=== PATIENT | female | born 1975 | race Caucasian/White ===

== ENCOUNTER 2017-05-02 00:06 | Emergency (ER) | payer OTHER ==
[2017-05-02 00:22] VITALS: TEMP 97.6; BMI 28.3
--- NOTE | 2017-05-02 03:13 | PDOC ---
History of Present Illness - General Chief Complaint: Laceration Stated Complaint: LACTERATION TO HEAD Time Seen by Provider: 05/02/17 02:16 - History of Present Illness Initial Comments: 05/02/17 02:55 CHIEF COMPLAINT: closed head injury HISTORY OF PRESENT ILLNESS: 41 yo F with hx of NIDDM presents to ED s/p head injury. Patient reports that she was washing dishes around 3 pm today and walked into the corner of an open cabinet door. Patient's son is at bedside and states that when he arrived home at around 7 pm patient was already sleeping, but otherwise she is acting normally. Patient denies any fall, LOC, or vomiting but reports that she did have nausea earlier. She reports that she has severe headache with movement of her left eye as well as with any movement of her head. No recent travel or sick contacts. PAST MEDICAL HISTORY: Denies past medical history FAMILY HISTORY: Denies SOCIAL HISTORY: Denies tobacco, alcohol, illicit drug use. SURGICAL HISTORY: Denies ALLERGIES: No known drug allergies REVIEW OF SYSTEMS General/Constitutional: Denies fever or chills. Denies weakness, weight change. HEENT: Laceration to scalp. Denies change in vision. Denies ear pain or discharge. Denies sore throat. Cardiovascular: Denies chest pain or shortness of breath. Respiratory: Denies cough, wheezing, or hemoptysis. Gastrointestinal: Denies nausea, vomiting, diarrhea or constipation. Denies rectal bleeding. Genitourinary: Denies dysuria, frequency, or change in urination. Musculoskeletal: Denies joint or muscle swelling or pain. Denies neck or back pain. Skin and breasts: Denies rash or easy bruising. Neurologic: Headache. Denies loss of consciousness, or loss of sensation. PHYSICAL EXAM General Appearance: Well-appearing, appropriately dressed. No apparent distress. HEENT: EOMI, PERRLA. No conjunctival pallor. No photophobia, scleral icterus. Neck: Supple. Trachea midline. No tenderness, rigidity, carotid bruit, stridor , lymphadenopathy, or thyromegaly. Respiratory/Chest: Lungs CTAB. Cardiovascular: RRR. S1, S2. Vascular Pulses: Dorsalis-Pedis (R): 2+, Dorsalis-Pedis (L): 2+ Gastrointestinal/Abdominal: Normal bowel sounds. Abdomen soft, non-distended. No tenderness or rebound tenderness. No organomegaly, pulsatile mass, guarding , hernia, hepatomegaly, splenomegaly. Musculoskeletal/Extremities: Normal inspection. FROM of all extremities, normal capillary refill. Pelvis Stable. No CVA tenderness. No tenderness to extremities, pedal edema, swelling, erythema or deformity. Integumentary: Superficial, laceration approximately 0.5 cm in length to left parietal scalp. Mild Appropriate color, dry, warm. No cyanosis, erythema, jaundice or rash Neurologic: heavy truck mechanic II-XII intact. Fully oriented, alert. Appropriate mood/affect. Motor strength 5/5. No appreciable EOM palsy, facial droop or sensory deficit. A&Ox3, follow commands, respond appropriately CN2-12: conjugate gaze, pupil round, equal and reactive to light. Visual field full to confrontation. EOMI without nystagmus, pursuit is smooth without saccade. Facial sensation and muscle activation intact bilaterally. Hearing intact bilaterally. Palate elevate symmetrically. Shoulder shrug and neck turn full strength. Tongue protrude midline. Motor: UE and LE strength 5/5 throughout bilaterally. Muscle tone and bulk normal. Sensory: pin prick & temp : BUE & BLE intact and equal bilaterally Vibration & propioception: intact bilaterally at 1st MCP and MTP joints. no sensory level noted on trunk Cerebellar: Rapid-alternating movement with regular rhythm without bradykinesia. Onlrve-[id number] and tpvl-ow-zhdh intact bilaterally without dysmetria or overshoot. Gait narrow based. No shuffling. Full hip flexion and knee flexion. Negative Romberg No involuntary movement noted. No pronator drift. No clonus. 05/02/17 04:58 Past History - Past Medical History Allergies/Adverse Reactions: Allergies Allergy/AdvReac Type Severity Reaction Status Date / Time No Known Allergies Allergy Verified 05/02/17 03:30 Home Medications: Ambulatory Orders Amoxicillin - [Amoxicillin 500mg Capsule -] 500 mg PO TID #90 capsule 05/30/14 Ondansetron [Zofran -] 4 mg PO TID #10 tablet 05/30/14 Oxycodone HCl/Acetaminophen [Percocet 5-325 mg Tablet -] 1 - 2 tab PO Q6H #14 tablet 05/30/14 Ibuprofen [Motrin -] 600 mg PO TID #21 tablet 05/02/17 Diabetes: Yes (GESTATIONAL) - Reproductive History Spontaneous : 0 - Immunization History Td Vaccination: Yes TDAP Vaccination: Yes Immunization Up to Date: Yes - Suicide/Smoking/Psychosocial Hx Smoking Status: No Smoking History: Never smoked Have you smoked in the past 12 months: No Number of Cigarettes Smoked Daily: 0 Information on smoking cessation initiated: No Hx Alcohol Use: No Drug/Substance Use Hx: No *Physical Exam - Vital Signs Last Vital Signs Temp Pulse Resp BP Pulse Ox 97.6 F 92 H 20 136/89 98 05/02/17 00:20 05/02/17 00:20 05/02/17 00:20 05/02/17 00:20 05/02/17 00:20 ED Treatment Course - RADIOLOGY Radiology Studies Ordered: Category Date Time Status HEAD CT WITHOUT CONTRAST [CT] Stat CT Scan 05/02/17 02:42 Ordered Medical Decision Making - Medical Decision Making 05/02/17 03:13 41 yo F with hx of NIDDM presents to ED s/p head injury. Laceration very superficial; no bleeding at this time, no indication for lac repair. Patient's son states patient is acting at baseline. -Head CT r/o bleed Head CT negative. Patient unsure when her last Tdap was. -Tdap given Advised pt to f/u with PCP and neuro this week . Advised patient of signs and symptoms for return to ER; patient verbalized understanding and agrees to plan. *DC/Admit/Observation/Transfer Diagnosis at time of Disposition: Closed head injury Qualifiers: Encounter type: initial encounter Qualified Code(s): S09.90XA - Unspecified injury of head, initial encounter; S09.90XA - Unspecified injury of head, initial encounter - Discharge Dispostion Disposition: HOME Condition at time of disposition: Stable Admit: No - Prescriptions Prescriptions: Ibuprofen [Motrin -] 600 mg PO TID #21 tablet - Referrals Referrals: Sonia Sagastume MD [Staff Physician] - Wes Cummings MD [Staff Physician] - - Patient Instructions Printed Discharge Instructions: DI for Closed Head Injury Additional Instructions: As discussed, please follow up with Dr. Garcia this week. Please follow up with neurology if your symptoms persist past 2-3 days. If you develop any change in vision, worsening headache, weakness to one side, slurred speech, persistent vomiting, change in behavior, or any new or worsening symptoms, please return to the ER immediately.
[2017-05-02] MEDS ORDERED: DIPHTH,PERTUSS(ACELL),TET 0.5 ML DISP.SYRIN IM ONE (04:52)
[2017-05-02 05:03] VITALS: BP 128/67; PULSE 86
== END 2017-05-02 05:11 | disposition home or self-care (01) ==
LOC: JER 00:06
PROC: 3E0234Z Introduction of Serum, Toxoid and Vaccine into Muscle, Percutaneous Approach (ICD-10-PCS; principal; 2017-05-02)
DX: S09.8XXA Other specified injuries of head, initial encounter (principal); W22.8XXA Striking against or struck by other objects, initial encounter; Y93.89 Activity, other specified; Y92.038 Other place in apartment as the place of occurrence of the external cause; Y99.8 Other external cause status
CPT/HCPCS: 70450-TC; 84703; 90471; 90715; 99283-25

== ENCOUNTER 2017-12-04 05:36 | Emergency (ER) | payer SELFPAY ==
[2017-12-04 06:19] VITALS: BP 140/86; PULSE 92; TEMP 98.5; BMI 27.2
[2017-12-04] MEDS ORDERED: ACETAMINOPHEN 325 MG TABLET (FP) PO ONE (07:33)
--- NOTE | 2017-12-04 07:33 | PDOC ---
History of Present Illness - General Chief Complaint: Cold Symptoms Stated Complaint: FEVER,PAIN - History of Present Illness Initial Comments: Patient is a 42 year old female, with a significant past medical history of NIDDM2, who presents to the emergency department complaining of 3 days of Sinus pain, productive cough and fever. Pt states she began developing a L sided JOSÉ 3 days around with generalized malaise with no associated neuro symptoms, primarily localized at the maxilla, L forehead and superior alveolar margin. Last night, pt developed a productive cough with yellow sputum and fever ( unknown value), took tylenol with resolution. Pt with prior hx of sinus infections, most recently 3 years ago. Denies recent travel or sick contacts. Decreased PO intake overnight. Pt endorsing anterior chest pain and neck pain (MSK) with coughing. patient denies shortness of breath, dizziness. Denies chills, nausea, vomiting, diarrhea and constipation. Denies dysuria, frequency, urgency and hematuria, myalgias. Allergies: None Past surgical history: Social History: Denies toxic habits PMD: Unknown 12/04/17 07:27 Past History - Past Medical History Allergies/Adverse Reactions: Allergies Allergy/AdvReac Type Severity Reaction Status Date / Time No Known Allergies Allergy Verified 12/04/17 06:16 Home Medications: Ambulatory Orders Acetaminophen [Tylenol] 650 mg PO QID 12/04/17 Amoxicillin/Potassium Clav [Augmentin 875-125 Tablet] 1 each PO BID #14 tablet 12/04/17 COPD: No Diabetes: Yes (GESTATIONAL) Other medical history: High sugars -- no meds - Reproductive History Spontaneous : 0 - Immunization History Td Vaccination: Yes TDAP Vaccination: Yes Immunization Up to Date: Yes - Suicide/Smoking/Psychosocial Hx Smoking Status: No Smoking History: Never smoked Have you smoked in the past 12 months: No Number of Cigarettes Smoked Daily: 0 Hx Alcohol Use: No Drug/Substance Use Hx: No Substance Use Type: None Review of Systems - Review of Systems Comments:: GENERAL/CONSTITUTIONAL: +fevers, no chills. No weakness. +malaise HEAD, EYES, EARS, NOSE AND THROAT: +nasal congestion, discharge on L. Maxillary sinus pain. No change in vision. No ear pain or discharge. No sore throat. CARDIOVASCULAR: No chest pain or shortness of breath RESPIRATORY: No cough, wheezing, or hemoptysis. GASTROINTESTINAL: No nausea, vomiting, diarrhea or constipation. GENITOURINARY: No dysuria, frequency, or change in urination. MUSCULOSKELETAL: +chest wall pain with coughing. No joint or muscle swelling or pain. No neck or back pain. SKIN: No rash NEUROLOGIC: + L sided JOSÉ. no vertigo, loss of consciousness, or change in strength/sensation. ENDOCRINE: No increased thirst. No abnormal weight change HEMATOLOGIC/LYMPHATIC: No anemia, easy bleeding, or history of blood clots. ALLERGIC/IMMUNOLOGIC: No hives or skin allergy. 12/04/17 07:28 *Physical Exam - Vital Signs Last Vital Signs Temp Pulse Resp BP Pulse Ox 98.5 F 92 H 22 140/86 98 12/04/17 06:17 12/04/17 06:17 12/04/17 06:17 12/04/17 06:17 12/04/17 06:17 - Physical Exam Comments: GENERAL: Middle aged woman, Awake, alert, and fully oriented, in mild distress HEAD: No signs of trauma, normocephalic, atraumatic EYES: PERRLA, EOMI, sclera anicteric, conjunctiva clear ENT: Pain on palpation of L maxillary sinus and forehead. Auricles normal inspection, hearing grossly normal, nares with BL congestion, oropharynx clear without exudates. Moist mucosa NECK: Normal ROM, supple, no lymphadenopathy, JVD, or masses LUNGS: Coarse rhonchi in upper airways. No distress, speaks full sentences HEART: Regular rate and rhythm, normal S1 and S2, no murmurs, rubs or gallops, peripheral pulses normal and equal bilaterally. ABDOMEN: Soft, nontender, normoactive bowel sounds. No guarding, no rebound. No masses EXTREMITIES : Normal inspection, Normal range of motion, no edema. No clubbing or cyanosis. NEUROLOGICAL: Cranial nerves II through XII grossly intact. Normal speech, normal gait, no focal sensorimotor deficits SKIN: Warm, Dry, normal turgor, no rashes or lesions noted 12/04/17 07:28 Medical Decision Making - Medical Decision Making 42 year old female, with a significant past medical history of NIDDM2, who presents to the emergency department complaining of 3 days of Sinus pain, productive cough and fever. DDx included sinus infection, URI, PNA, bacterial pharyngitis, cluster JOSÉ. Plan: - flu swab - Tylenol for pain, fever - will discharge with one week course of Augmentin, tylenol, robitussin, nasal irrigation and follow-up if symptoms worsen 12/04/17 07:37 *DC/Admit/Observation/Transfer Diagnosis at time of Disposition: Sinusitis Qualifiers: Sinusitis location: maxillary Chronicity: chronic Qualified Code(s): J32.0 - Chronic maxillary sinusitis - Discharge Dispostion Disposition: HOME Condition at time of disposition: Fair Decision to Admit order: No - Prescriptions Prescriptions: Amoxicillin/Potassium Clav [Augmentin 875-125 Tablet] 1 each PO BID #14 tablet - Referrals - Patient Instructions Additional Instructions: During your visit to the [facility] ED, you were evaluated for JOSÉ, fever and cough. You received tylenol and a flu swab. You are being discharged home with outpatient follow-up with your primary care provider in 4-5 days and a one week prescription of augmentin for suspected bacterial sinusitis. Please take robitussin three times a day for your cough. You may also use nasal irrigation to help clear your sinuses, available at any pharmacy. You are being prescribe a seven day course of Augmentin. Please take one pill, twice a day by mouth, for the next week. Please take tylenol 650mg every four hours if you experience fevers or JOSÉ. If you experience any of the following symptoms, please return to the ED: - Persistent fevers/chills >3 days - Worsening cough, shortness of breath - Worsening of your headache - Any new or concerning symptoms - Post Discharge Activity
[2017-12-04] MEDS ORDERED: ACETAMINOPHEN 325 MG TABLET (FP) ONE (07:42)
--- NOTE | 2017-12-04 08:04 | PDOC ---
Attending Attestation - Resident Resident Name: Tello Quinones - ED Attending Attestation I have performed the following: I have examined & evaluated the patient, The case was reviewed & discussed with the resident, I agree w/resident's findings & plan, Exceptions are as noted - HPI HPI: 12/04/17 07:55 42y F hx of NIDDM, presents with worsening R sided headache, subjective fevers, cough, body aches x 2-3 days. Pt has had alot of congestoin, mostly in the R side, feel slike she cant completely clear her nose when she blows. Denies any vision changes, ear pain, cp, sob, abd pain, gomez, n/v. took a tylenol with some improvement of her body aches resolution of the fever. GENERAL: The patient is awake, alert, and fully oriented, Nontoxic - in no acute distress. HEAD: Normocephalic, atraumatic. EYES: extraocular movements intact, sclera anicteric, conjunctiva clear. ENT: Normal voice, Moist mucous membranes, TMs were clear bilaterally without signs of erythema, no mastoid tenderness, focal tenderness to the right maxillary sinus. Congested sounding NECK: Normal range of motion, supple LUNGS: Breath sounds equal, clear to auscultation bilaterally. No wheezes, no rhonchi, no rales. HEART: Regular rate and rhythm, normal S1 and S2 without murmur, rub or gallop. ABDOMEN: Soft, nontender, n No guarding, no rebound. No CVA tenderness EXTREMITIES: Normal range of motion, no edema. NEUROLOGICAL: No facial assymetry, Normal speech, PSYCH: Normal mood, normal affect. SKIN: Warm, Dry, normal turgor, Suspect viral syndrome versus sinusitis due to the patient's history of diabetes will give the patient with Augmentin. No signs of mastoiditis, no focal neurologic complaints. Supportive management at home PMD follow-up in 4-5 days with return precautions - Physicial Exam PE: 12/05/17 20:15 see abve - Medical Decision Making 12/05/17 20:15 see above
== END 2017-12-04 08:35 | disposition home or self-care (01) ==
LOC: JER 05:36
DX: J32.0 Chronic maxillary sinusitis (principal); E11.9 Type 2 diabetes mellitus without complications
CPT/HCPCS: 87804; 99283-25

== ENCOUNTER 2019-01-12 00:19 | Emergency (ER) | payer OTHER ==
[2019-01-12 01:10] VITALS: BP 130/75; PULSE 75; TEMP 98.8; BMI 30.2
--- NOTE | 2019-01-12 01:11 | PDOC ---
*Physical Exam - Vital Signs Last Vital Signs Temp Pulse Resp BP Pulse Ox 98.8 F 75 15 130/75 99 01/12/19 00:20 01/12/19 00:20 01/12/19 00:20 01/12/19 00:20 01/12/19 00:20 Medical Decision Making - Medical Decision Making 01/12/19 01:11 Patient seen by the advanced practice provider under my direct supervision. Ancillary testing reviewed as necessary. I agree with plan as outlined by the advanced practice provider. *DC/Admit/Observation/Transfer Diagnosis at time of Disposition: Infected dental caries - Discharge Dispostion Disposition: HOME Condition at time of disposition: Fair - Prescriptions Prescriptions: Amoxicillin/Potassium Clav [Augmentin 875-125 Tablet] 1 each PO BID #20 tablet Ibuprofen 600 mg PO QID PRN #20 tablet PRN Reason: Pain - Referrals Referrals: Maria L Vicente [Primary Care Provider] - - Patient Instructions Printed Discharge Instructions: Tooth Abscess Additional Instructions: Take ibuprofen every 6 hours as needed for pain. take Augmentin twice a day for 10 days. Follow-up with a dentist as soon as possible. return to the ER for any worsening symptoms. - Post Discharge Activity Forms/Work/School Notes: Back to Work
[2019-01-12] MEDS ORDERED: IBUPROFEN 600 MG TABLET (FP) PO ONE ×2 (01:15→01:22)
[2019-01-12] MEDS ORDERED: AMOX TR/POT CLAV 875MG/125MG TABLETS (FP) PO ONE (01:15)
--- NOTE | 2019-01-12 01:19 | PDOC ---
History of Present Illness - General Chief Complaint: Head/Neck problem Stated Complaint: NUMBNESS Time Seen by Provider: 01/12/19 01:10 History Source: Patient - History of Present Illness Initial Comments: 01/12/19 01:14 43 year old female with left upper molar pain with swelling to left swelling to face. denies fever/ chills. pmhx: diabetes currently not tacit meds Past History - Past Medical History Allergies/Adverse Reactions: Allergies Allergy/AdvReac Type Severity Reaction Status Date / Time No Known Allergies Allergy Verified 01/12/19 01:10 Home Medications: Ambulatory Orders Acetaminophen [Tylenol] 650 mg PO QID 12/04/17 Amoxicillin/Potassium Clav [Augmentin 875-125 Tablet] 1 each PO BID #14 tablet 12/04/17 Amoxicillin/Potassium Clav [Augmentin 875-125 Tablet] 1 each PO BID #20 tablet 01/12/19 Ibuprofen 600 mg PO QID PRN #20 tablet 01/12/19 COPD: No Diabetes: Yes (GESTATIONAL) - Reproductive History Spontaneous : 0 - Immunization History Td Vaccination: Yes TDAP Vaccination: Yes Immunization Up to Date: Yes - Suicide/Smoking/Psychosocial Hx Smoking Status: No Smoking History: Never smoked Have you smoked in the past 12 months: No Number of Cigarettes Smoked Daily: 0 Information on smoking cessation initiated: No Hx Alcohol Use: No Drug/Substance Use Hx: No Substance Use Type: None Review of Systems - Review of Systems Able to Perform ROS?: Yes Is the patient limited Portuguese proficient: No Constitutional: No: Symptoms Reported, See HPI, Chills, Diaphoresis, Fever, Loss of Appetite, Malaise, Night Sweats, Weakness, Weight Stable, Unintentional Wgt. Loss, Unexplained wgt Loss, Other HEENTM: Yes: Mouth Pain (left side facial swelling anfd gum pain) *Physical Exam - Vital Signs Last Vital Signs Temp Pulse Resp BP Pulse Ox 98.8 F 75 15 130/75 99 01/12/19 00:20 01/12/19 00:20 01/12/19 00:20 01/12/19 00:20 01/12/19 00:20 - Physical Exam General Appearance: Yes: Appropriately Dressed HEENT: positive: Other (+ tooth decay of left upper molar, gum swelling of left upper gums. + facial swelling) Medical Decision Making - Medical Decision Making 06/26/19 06:03 Infected dental caries P: Augmentin pain control dentist follow up discussed with patient. *DC/Admit/Observation/Transfer Diagnosis at time of Disposition: Infected dental caries - Discharge Dispostion Disposition: HOME Condition at time of disposition: Fair - Prescriptions Prescriptions: Amoxicillin/Potassium Clav [Augmentin 875-125 Tablet] 1 each PO BID #20 tablet Ibuprofen 600 mg PO QID PRN #20 tablet PRN Reason: Pain - Referrals Referrals: Maria L Vicente [Primary Care Provider] - - Patient Instructions Printed Discharge Instructions: Tooth Abscess Additional Instructions: Take ibuprofen every 6 hours as needed for pain. take Augmentin twice a day for 10 days. Follow-up with a dentist as soon as possible. return to the ER for any worsening symptoms. - Post Discharge Activity Forms/Work/School Notes: Back to Work
[2019-01-12] MEDS ORDERED: AMOX TR/POT CLAV 875MG/125MG TABLETS (FP) ONE (01:22)
== END 2019-01-12 01:36 | disposition home or self-care (01) ==
LOC: JER 00:19
DX: K02.9 Dental caries, unspecified (principal)
CPT/HCPCS: 99282-25

== ENCOUNTER 2021-04-09 15:17 | Emergency (ER) | payer OTHER ==
[2021-04-09 15:38] VITALS: BP 139/8; PULSE 79; TEMP 98.1; BMI 31.3
[2021-04-09] MEDS ORDERED: DIPHTH,PERTUSS(ACELL),TET 0.5 ML DISP.SYRIN IM ONE ×2 (16:19→17:11)
[2021-04-09] MEDS ORDERED: AMOX TR/POT CLAV 875MG/125MG TABLETS (FP) PO ONE (16:54)
[2021-04-09] MEDS ORDERED: AMOX TR/POT CLAV 875MG/125MG TABLETS (FP) ONE (17:11)
== END 2021-04-09 17:19 | disposition home or self-care (01) ==
LOC: JERFT 15:17
PROC: 3E0234Z Introduction of Serum, Toxoid and Vaccine into Muscle, Percutaneous Approach (ICD-10-PCS; principal; 2021-04-09)
DX: S71.112A Laceration without foreign body, left thigh, initial encounter (principal); W55.03XA Scratched by cat, initial encounter; Y92.9 Unspecified place or not applicable
CPT/HCPCS: 90471; 90715; 99283-25